=== PATIENT | male | born 1965 | race Caucasian/White ===

== ENCOUNTER 2021-08-18 09:31 | Emergency (ER) | payer OTHER ==
[~2021-08-18] VITALS: Ht 182.9 cm; Wt 104.3 kg
[2021-08-18] MEDS ORDERED: CEPHALEXIN500 M1 PO (12:08)
[2021-08-18] MEDS ORDERED: HYDROCODON-ACE1 EA11 PO (12:08)
== END 2021-08-18 12:59 | disposition home or self-care (01) ==
LOC: ED 09:31
PROC: 0HQFXZZ Repair Right Hand Skin, External Approach (ICD-10-PCS; principal; 2021-08-18)
DX: S61.200A Unspecified open wound of right index finger without damage to nail, initial encounter (principal); W23.0XXA Caught, crushed, jammed, or pinched between moving objects, initial encounter; Z23 Encounter for immunization
CPT/HCPCS: 12001; 73140; 90471; 90715; 99283-25